=== PATIENT | female | born 1945 | race Caucasian/White ===

== ENCOUNTER 2019-12-07 09:47 | Inpatient (IN) ==
[2019-12-07] MEDS ORDERED: Ondansetron 4 mg VIAL 2 MG/ML 2 ml VIAL IV ONE (09:59)
[2019-12-07] MEDS ORDERED: hydrALAZINE 20 mg/ml 1 ML Vial IV IV SLOW PU PRN (12:00)
[2019-12-07] MEDS: Potassium Chloride IV 20 MEQ in Lactated Ringers 1000 ml BAG 1,000 ML IVPB SCH ×2 (12:44→22:32)
[2019-12-07] MEDS ORDERED: Metoprolol Tartrate 5 mg VIAL 5 ml VIAL (1 mg/ml) IV SCH (13:00)
[2019-12-07] MEDS: Heparin 5000 UNITS/ML 1 mL VIAL SUBCUT SCH ×2 (13:47→22:53)
[2019-12-07] MEDS: HYDROmorphone 1 MG/1 ML SYRINGE IV SLOW PU PRN (16:28)
[2019-12-07] MEDS: Ondansetron 4 mg VIAL 2 MG/ML 2 ml VIAL IV PRN ×2 (16:28→21:30)
[2019-12-07 20:46] LABS: Hepatitis B Surface Antigen Nonreactive (Nonreactive)
[2019-12-07 21:03] LABS: Hepatitis B Surface Ab Not Immune (Immune); Hepatitis C Antibody Negative (Negative)
[2019-12-07] MEDS: Metoprolol Tartrate 5 mg VIAL 5 ml VIAL (1 mg/ml) IV SCH (21:30)
[2019-12-07] MEDS: Timolol 0.25% OPHTH.SOLN BTL BOTH EYES SCH (22:38)
[2019-12-08] MEDS: Ondansetron 4 mg VIAL 2 MG/ML 2 ml VIAL IV PRN ×3 (01:29→20:40)
[2019-12-08] MEDS: Metoprolol Tartrate 5 mg VIAL 5 ml VIAL (1 mg/ml) IV SCH ×4 (01:29→20:39)
[2019-12-08] MEDS: HYDROmorphone 1 MG/1 ML SYRINGE IV SLOW PU PRN ×3 (01:41→20:40)
[2019-12-08] MEDS: Prochlorperazine 5 mg/ml 2 ml VIAL (10 mg) IV PRN (05:03)
[2019-12-08 05:28] LABS: ABS Lymphocytes 1.3 10^3/ul (1.0-4.8); ABS Monocytes 0.4 10^3/ul (0-0.8); ABS Neutrophils 8.9 10^3/ul (1.5-7.7); Hematocrit 33 % (35-47); Hemoglobin 11.5 g/dL (12.0-16.0); Lymphocyte % 12.4 %; Mean Corpuscular HGB Conc 35 g/dL (31-36); Mean Corpuscular Hemoglobin 30 pg (27-31); Mean Corpuscular Volume 85 fL (80-97); Mean Platelet Volume 7.9 fL (7.4-10.4); Platelet Count 247 10^3/uL (150-450); Red Blood Count 3.83 10^6 /uL (3.70-4.87); Red Cell Distribution Width 14 % (10-15); White Blood Count 10.6 10^3/uL (3.5-10.8)
[2019-12-08] MEDS: Heparin 5000 UNITS/ML 1 mL VIAL SUBCUT SCH ×3 (06:24→20:40)
[2019-12-08] MEDS: Potassium Chloride IV 20 MEQ in Lactated Ringers 1000 ml BAG 1,000 ML IVPB SCH ×2 (06:25→12:59)
[2019-12-08 06:35] LABS: Calcium 9.2 mg/dL (8.6-10.3); Magnesium 1.5 mg/dL (1.9-2.7); Potassium 3.3 mmol/L (3.5-5.0)
[2019-12-08] MEDS ORDERED: Magnesium Sulfate IV 3 GM in NS 0.9% 100 ml BAG 100 ML IVPB ONE (06:36)
[2019-12-08 06:40] LABS: BUN/Creatinine Ratio 26.4 (8-20); EGFR African American 136.8 (>60); EGFR Non-African American 113.1 (>60)
[2019-12-08] MEDS: Timolol 0.25% OPHTH.SOLN BTL BOTH EYES SCH ×2 (10:40→20:39)
[2019-12-08] MEDS: Latanoprost 0.005% 2.5 ml BTL BOTH EYES SCH (10:40)
[2019-12-08] MEDS ORDERED: Diltiazem IV push/loading dose 5 MG/ML 5 ML vial (25 mg) IV SLOW PU ONE (10:43)
[2019-12-08] MEDS: KCL 20 MEQ/100 ML IVPREMIX 20 MEQ/100 ML BAG IV SCH ×4 (11:02→16:06)
[2019-12-08] MEDS: Lactated Ringers 1000 ml BAG 1,000 ML IV SCH (12:54)
[2019-12-09] MEDS: Metoprolol Tartrate 5 mg VIAL 5 ml VIAL (1 mg/ml) IV SCH ×4 (00:44→19:53)
[2019-12-09] MEDS: Lactated Ringers 1000 ml BAG 1,000 ML IV SCH ×2 (01:41→19:52)
[2019-12-09] MEDS: HYDROmorphone 1 MG/1 ML SYRINGE IV SLOW PU PRN ×4 (01:46→22:21)
[2019-12-09] MEDS: Prochlorperazine 5 mg/ml 2 ml VIAL (10 mg) IV PRN (01:46)
[2019-12-09] MEDS: Heparin 5000 UNITS/ML 1 mL VIAL SUBCUT SCH ×3 (05:10→22:18)
[2019-12-09 06:48] LABS: ABS Lymphocytes 1.3 10^3/ul (1.0-4.8); ABS Monocytes 0.6 10^3/ul (0-0.8); ABS Neutrophils 5.3 10^3/ul (1.5-7.7); Hematocrit 34 % (35-47); Lymphocyte % 17.8 %; Mean Corpuscular HGB Conc 36 g/dL (31-36); Mean Corpuscular Hemoglobin 31 pg (27-31); Mean Corpuscular Volume 86 fL (80-97); Mean Platelet Volume 7.9 fL (7.4-10.4); Platelet Count 259 10^3/uL (150-450); Red Blood Count 3.93 10^6 /uL (3.70-4.87); Red Cell Distribution Width 14 % (10-15); White Blood Count 7.2 10^3/uL (3.5-10.8)
[2019-12-09 07:08] LABS: Calcium 8.8 mg/dL (8.6-10.3); EGFR African American 133.9 (>60); EGFR Non-African American 110.7 (>60); Potassium 3.6 mmol/L (3.5-5.0)
[2019-12-09] MEDS: Latanoprost 0.005% 2.5 ml BTL BOTH EYES SCH (07:47)
[2019-12-09] MEDS: Timolol 0.25% OPHTH.SOLN BTL BOTH EYES SCH ×2 (07:47→22:17)
[2019-12-09] MEDS: Ondansetron 4 mg VIAL 2 MG/ML 2 ml VIAL IV PRN (07:47)
[2019-12-10] MEDS: Metoprolol Tartrate 5 mg VIAL 5 ml VIAL (1 mg/ml) IV SCH ×4 (00:30→20:11)
[2019-12-10] MEDS: HYDROmorphone 1 MG/1 ML SYRINGE IV SLOW PU PRN ×5 (02:39→21:23)
[2019-12-10] MEDS: Lactated Ringers 1000 ml BAG 1,000 ML IV SCH ×3 (03:49→18:49)
[2019-12-10] MEDS: Heparin 5000 UNITS/ML 1 mL VIAL SUBCUT SCH ×3 (05:56→21:27)
[2019-12-10] MEDS: Timolol 0.25% OPHTH.SOLN BTL BOTH EYES SCH ×2 (08:11→21:27)
[2019-12-10] MEDS: Latanoprost 0.005% 2.5 ml BTL BOTH EYES SCH (08:11)
[2019-12-10 11:02] LABS: ABS Lymphocytes 1.4 10^3/ul (1.0-4.8); ABS Monocytes 0.6 10^3/ul (0-0.8); ABS Neutrophils 4.1 10^3/ul (1.5-7.7); Eosinophil % 0.1 %; Hematocrit 34 % (35-47); Hemoglobin 11.8 g/dL (12.0-16.0); Lymphocyte % 22.9 %; Mean Corpuscular HGB Conc 35 g/dL (31-36); Mean Corpuscular Hemoglobin 29 pg (27-31); Mean Corpuscular Volume 85 fL (80-97); Mean Platelet Volume 7.5 fL (7.4-10.4); Platelet Count 274 10^3/uL (150-450); Red Blood Count 4.01 10^6 /uL (3.70-4.87); Red Cell Distribution Width 13 % (10-15); White Blood Count 6.2 10^3/uL (3.5-10.8)
[2019-12-10 11:19] LABS: Calcium 8.4 mg/dL (8.6-10.3); EGFR African American 146.3 (>60); EGFR Non-African American 120.9 (>60); Magnesium 1.7 mg/dL (1.9-2.7); Potassium 3.1 mmol/L (3.5-5.0)
[2019-12-10] MEDS ORDERED: Magnesium Sulfate 2 gm BAG 2 GM/50 ML BAG IVPB ONE (12:13)
[2019-12-10] MEDS ORDERED: Propofol 10 MG/ML 20 ML BTL ONE (14:02)
[2019-12-10] MEDS ORDERED: fentaNYL 100 mcg/2 ml 50 MCG/ML VIAL ONE (14:02)
[2019-12-10] MEDS: KCL 20 MEQ/100 ML IVPREMIX 20 MEQ/100 ML BAG IV SCH ×3 (14:27→20:09)
[2019-12-10] MEDS ORDERED: Neostigmine Methylsulfate 3 MG/3 ML SYRINGE ONE (14:31)
[2019-12-10] MEDS ORDERED: Glycopyrrolate IV 0.2 MG/ML 1 ML VIAL ONE (14:31)
[2019-12-10] MEDS ORDERED: ceFAZolin 2 GM PREMIX 2 GM/50 ML BAG ONE (15:43)
[2019-12-10] MEDS ORDERED: Etomidate 20 mg/10 ml 2 MG/ML 10 ml VIAL ONE (15:53)
[2019-12-10] MEDS ORDERED: Naloxone 0.4 mg VIAL 0.4 mg/ml 1 ml VIAL IV PRN (17:33)
[2019-12-10] MEDS ORDERED: Acetaminophen IV 1 GM/100ML 1,000 MG/100 ML VIAL IVPB ONE (17:33)
[2019-12-10] MEDS ORDERED: fentaNYL 100 mcg/2 ml 50 MCG/ML VIAL IV PRN (17:33)
[2019-12-10] MEDS ORDERED: DiMENhydriNATE IV 50 mg/ml 1 ml VIAL IV PUSH PRN (17:33)
[2019-12-10] MEDS: Ondansetron 4 mg VIAL 2 MG/ML 2 ml VIAL IV PRN (21:23)
[2019-12-11] MEDS: Metoprolol Tartrate 5 mg VIAL 5 ml VIAL (1 mg/ml) IV SCH ×2 (01:33→08:19)
[2019-12-11] MEDS: Lactated Ringers 1000 ml BAG 1,000 ML IV SCH (03:05)
[2019-12-11] MEDS: Heparin 5000 UNITS/ML 1 mL VIAL SUBCUT SCH (05:23)
[2019-12-11 07:51] VITALS: BP 138/66
[2019-12-11] MEDS: Timolol 0.25% OPHTH.SOLN BTL BOTH EYES SCH (08:21)
[2019-12-11] MEDS: Latanoprost 0.005% 2.5 ml BTL BOTH EYES SCH (08:22)
[2019-12-11 08:23] LABS: ABS Lymphocytes 1.1 10^3/ul (1.0-4.8); ABS Monocytes 0.5 10^3/ul (0-0.8); ABS Neutrophils 3.3 10^3/ul (1.5-7.7); Hematocrit 30 % (35-47); Hemoglobin 10.6 g/dL (12.0-16.0); Lymphocyte % 22.6 %; Mean Corpuscular HGB Conc 35 g/dL (31-36); Mean Corpuscular Hemoglobin 30 pg (27-31); Mean Corpuscular Volume 85 fL (80-97); Mean Platelet Volume 7.6 fL (7.4-10.4); Nucleated Red Blood Cells % 0.1; Platelet Count 240 10^3/uL (150-450); Red Blood Count 3.59 10^6 /uL (3.70-4.87); Red Cell Distribution Width 13 % (10-15); White Blood Count 4.9 10^3/uL (3.5-10.8)
[2019-12-11 08:39] LABS: BUN/Creatinine Ratio 22.7 (8-20); Calcium 8.4 mg/dL (8.6-10.3); EGFR African American 169.6 (>60); EGFR Non-African American 140.2 (>60); Potassium 3.2 mmol/L (3.5-5.0)
[2019-12-11] MEDS ORDERED: KCL 20 MEQ/100 ML IVPREMIX 20 MEQ/100 ML BAG IV SCH (09:00)
[2019-12-11] MEDS ORDERED: Magnesium Sulfate 2 gm BAG 2 GM/50 ML BAG IVPB ONE (10:00)
== END 2019-12-11 11:25 | disposition home or self-care (01) | DRG 337 ==
LOC: ED 09:47 → SSU 09:47 → MEDTELE 12-08 10:11 → SSU 12-10 18:18
PROVIDERS: ADMIT Surgery; ATTEND Surgery